=== PATIENT | male | born 1970 | race Caucasian/White ===

== ENCOUNTER 2018-02-15 21:56 | Emergency (ER) | payer OTHER ==
[2018-02-15 22:02] VITALS: BP 144/93; PULSE 82; TEMP 98.2; BMI 29.5
[2018-02-15] MEDS ORDERED: SODIUM CHLORIDE 1,000 ML IV STA (23:21)
[2018-02-15] MEDS ORDERED: PIPERACILLIN/TAZOB 3.375 GM 3.375 GM in DEXTROSE 5%-WATER - 50 ML IVPB ONE (23:22)
[2018-02-15] MEDS ORDERED: ONDANSETRON 4 MG/2 ML VIAL IVPUSH ONE (23:22)
[2018-02-15] MEDS ORDERED: ACETAMINOPHEN 1000 MG/100 ML VIAL (NON FORMULARY) IVPB ONE (23:23)
--- NOTE | 2018-02-15 23:27 | PDOC ---
Attending Attestation - HPI HPI: 02/15/18 23:43 The patient is a 87 year old male, with a significant past medical history of H.pylori (3 years ago), who presents to the emergency department with, 1 day of epigastric pain. As per patient, he has been experiencing epigastric pain, nausea with 20 episodes of watery emesis. He ranks his pain as 8/10. He went to [facility] earlier today where he received an ultrasound and bloodwork. His blood work showed a pertinent finding of 16.7 WBC. The advised him to report to the ED for further evaluation. He denies any recent fevers, chills, headache or dizziness. He denies any recent diarrhea or constipation. He denies any recent chest pain or shortness of breath. He denies any recent dysuria, frequency, urgency or hematuria. Allergies: NKA Social History: Social alcohol usage. Nonsmoker. Denies recreational drug use. - Physicial Exam PE: 02/15/18 23:43 GENERAL: Awake, alert, and fully oriented, in no acute distress HEAD: No signs of trauma EYES: PERRLA, EOMI, sclera anicteric, conjunctiva clear ENT: Auricles normal inspection, hearing grossly normal, nares patent, oropharynx clear without exudates. Moist mucosa NECK: Normal ROM, supple, no lymphadenopathy, JVD, or masses LUNGS: Breath sounds equal, clear to auscultation bilaterally. No wheezes, and no crackles HEART: Regular rate and rhythm, normal S1 and S2, no murmurs, rubs or gallops +ABDOMEN: Epigastric tenderness. [place] negative. Soft, normoactive bowel sounds. No guarding, no rebound. No masses EXTREMITIES: Normal range of motion, no edema. No clubbing or cyanosis. No cords, erythema, or tenderness NEUROLOGICAL: Cranial nerves II through XII grossly intact. Normal speech, normal gait SKIN: Warm, Dry, normal turgor, no rashes or lesions noted. <Linda Pritchard - Last Filed: 02/15/18 23:43> - Resident Resident Name: Sarwat Rueda - ED Attending Attestation I have performed the following: I have examined & evaluated the patient, The case was reviewed & discussed with the resident, I agree w/resident's findings & plan, Exceptions are as noted - Medical Decision Making 02/15/18 23:22 A portion of this note was written by my scribe, under my supervision. Vital Signs Temp Pulse Resp BP Pulse Ox 98.2 F 82 20 144/93 99 02/15/18 21:59 02/15/18 21:59 02/15/18 21:59 02/15/18 21:59 02/15/18 21:59 47 year old male with past medical history of H. pylori sent in from urgent care for epigastric pain and WBC 16. The patient woke up this morning with epigastric pain and multiple episodes of nauesa and vomiting. No fevers, chills. Endorses no appetite. Pt had a RUQ ultrasound (but did not get it read) and had blood work which showed WBC 16, and pt was sent to the ER. Will need to r/o acute cholecystitis. Will give IV antibiotics. U/S of RUQ. Admit. 02/16/18 02:05 Ultrasound reviewed. No acute findings. Will admit for GABRIELLA and leukocytosis. 02/16/18 02:34 Pt states that he feels much better and would like to go home. Even after giving the results of elevated WBC and GABRIELLA, the patient still requests to go home. Pt has capacity and has been able to repeat the risks. In the mean time, it is unclear what the source of the leukocytosis. This may in fact be reactive. However, blood cultures are pending. Will allow him to AMA. Will give him supportive care and have patient drink plenty of fluids. Return precautions given. <Bubba Clinton - Last Filed: 02/16/18 02:36> Heart Score/ECG Review #1 ECG reviewed & interpreted by me at: 01:10 02/16/18 01:22 NSR 75, no std/nereyda, normal axis, normal intervals, QTC 446 msec. <Bubba Clinton - Last Filed: 02/16/18 02:36> Attestations - Attestations 02/15/18 23:43 Documentation prepared by Linda Pritchard, acting as medical device sales consultant for Bubba Clinton MD. <Linda Pritchard - Last Filed: 02/15/18 23:43>
[2018-02-16] MEDS ORDERED: ONDANSETRON 4 MG/2 ML VIAL ONE (00:02)
[2018-02-16] MEDS ORDERED: ACETAMINOPHEN INJECTION 100 ML IVPB ONE (00:02)
[2018-02-16] MEDS ORDERED: PIPERACILLIN/TAZOB 3.375 GM 3.375 GM/50 ML BAG IVPB ONE (00:03)
[2018-02-16 00:21] LABS: BASO % 0.4 % (0-2.0); EOS % 0.1 % (0-4.5); HEMOGLOBIN 16.5 GM/dL (11.7-16.9); LYMPH % 6.7 % (8-40); MCH 30.7 pg (25.7-33.7); MCHC 33.7 g/dl (32.0-35.9); MEAN CELL VOLUME 91.2 fl (80-96); MEAN PLT VOLUME 8.3 fl (7.5-11.1); MONO % 6.4 % (3.8-10.2); NEUT % 86.4 % (42.8-82.8); PLATELET COUNT 260 K/MM3 (134-434); RBC 5.37 M/mm3 (4.00-5.60); RDW 13.7 % (11.9-15.9); WHITE BLOOD COUNT 16.2 K/mm3 (4.0-10.0)
[2018-02-16 01:04] LABS: ALBUMIN 4.4 g/dl (3.4-5.0); ANION GAP 10 (8-16); BILIRUBIN,TOTAL 0.8 mg/dL (0.2-1.0); BLOOD UREA NITROGEN 16 mg/dL (7-18); CALCIUM 9.6 mg/dL (8.5-10.1); CHLORIDE 103 mmol/L (98-107); CO2 27 mmol/L (21-32); CREATININE 1.5 mg/dL (0.7-1.3); GLUCOSE,RANDOM 132 mg/dL (74-106); LIPASE 78 U/L (73-393); POTASSIUM 4.4 mmol/L (3.5-5.1); SGOT/AST 20 U/L (15-37); SGPT/ALT 36 U/L (12-78); SODIUM 140 mmol/L (136-145); TOT PROT 8.2 g/dl (6.4-8.2)
[2018-02-16 01:07] LABS: ALK PHOS 92 U/L (45-117)
[2018-02-16 01:43] LABS: URINE APPEARANCE CLEAR; URINE BILIRUBIN NEGATIVE (<2.0 mg/dL); URINE COLOR DKYELLOW; URINE GLUCOSE (UA) NEGATIVE (NEGATIVE); URINE KETONE NEGATIVE (NEGATIVE); URINE LEUK ESTERASE NEGATIVE (NEGATIVE); URINE NITRITE NEGATIVE (NEGATIVE); URINE UROBILINOGEN NEGATIVE mg/dL (0.2-1.0)
[2018-02-16 02:13] LABS: URINE PROTEIN 1+ (NEGATIVE)
[2018-02-16 02:14] LABS: EPI CELLS RARE /HPF (FEW); URINE MUCUS MANY
--- NOTE | 2018-02-16 02:28 | PDOC ---
History of Present Illness - General Chief Complaint: Pain Stated Complaint: FATIGUE Time Seen by Provider: 02/15/18 22:48 History Source: Patient Exam Limitations: No Limitations - History of Present Illness Initial Comments: 02/16/18 17:58 Mr. Mejía is a 47 yo M with a hx of h. pylori infection (3 years ago) who presented to the emergency department with abdominal pain with associated nausea and vomiting after referral from [facility] urgent care. He states the pain began 6am 02/15/2018 that woke him from sleep. He states it was a squeezing sensation, 8/10, without radiation with eating increasing the pain. He endorses having 20x+ vomiting episodes throughout the day, but denies hematemesis. Currently, he states his abdominal pain is 2/10 and was able to tolerate PO apple juice and water. His labs showed leukocytosis of 16+ WBC and possible dilated common bile duct on RUQ US. Denies the following: fever, headache, chest pain, SOB, dysuria, hematochezia, hematuria, dizziness, and neck pain. Pmhx: H pylori 3 years ago Shx: Vasectomy 2016 Medications: None Allergies: NKDA Social: Denies smoking and substance abuse. Recreational/social drinker. 02/16/18 18:05 Past History - Past Medical History Allergies/Adverse Reactions: Allergies Allergy/AdvReac Type Severity Reaction Status Date / Time No Known Allergies Allergy Verified 02/15/18 22:02 Home Medications: Ambulatory Orders Ibuprofen [Motrin -] 600 mg PO QID PRN #20 tablet 02/16/18 Ondansetron [Zofran -] 4 mg PO TID PRN #14 tablet 02/16/18 Ranitidine [Zantac -] 150 mg PO BID PRN 7 Days #14 tablet 02/16/18 - Suicide/Smoking/Psychosocial Hx Smoking History: Never smoked Hx Alcohol Use: Yes (social) Drug/Substance Use Hx: No Review of Systems - Review of Systems Able to Perform ROS?: Yes Constitutional: No: Chills, Diaphoresis, Fever HEENTM: No: Blurred Vision, Recent change in vision, Nose Pain, Throat Pain, Mouth Pain Respiratory: No: Cough, Shortness of Breath, Hemoptysis Cardiac (ROS): No: Chest Pain, Lightheadedness, Palpitations ABD/GI: Yes: Nausea, Vomiting. No: Constipated, Diarrhea, Rectal Bleeding, Tarry Stools : No: Burning, Dysuria, Hematuria Musculoskeletal: No: Back Pain Integumentary: No: Rash Neurological: No: Headache, Numbness Psychiatric: No: Stressors Endocrine: No: Unexplained Weight Gain *Physical Exam - Vital Signs Last Vital Signs Temp Pulse Resp BP Pulse Ox 98.2 F 82 20 144/93 99 02/15/18 21:59 02/15/18 21:59 02/15/18 21:59 02/15/18 21:59 02/15/18 21:59 - Physical Exam General Appearance: Yes: Nourished, Appropriately Dressed HEENT: positive: EOMI, YURI. negative: Pharyngeal Erythema, Tonsillar Exudate Neck: positive: Other (negative brudzinski and kernig sign.). negative: Lymphadenopathy (R), Lymphadenopathy (L) Respiratory/Chest: positive: Lungs Clear, Normal Breath Sounds. negative: Chest Tender Cardiovascular: positive: Regular Rhythm, Regular Rate, S1, S2. negative: Systolic Murmur Vascular Pulses: Dorsalis-Pedis (R): 3+, Doralis-Pedis (L): 3+ Gastrointestinal/Abdominal: positive: Normal Bowel Sounds, Tender (epigastric region), Other (negative murphys sign. negative mcburney, negative rosvings) Musculoskeletal: negative: CVA Tenderness Extremity: positive: Normal Capillary Refill, Normal Inspection Integumentary: positive: Normal Color, Dry, Warm Neurologic: positive: supervisor glycerin II-XII NML intact, Fully Oriented, Alert, Motor Strength 5/5 ED Treatment Course - LABORATORY CBC & Chemistry Diagram: 02/16/18 00:10 02/16/18 00:10 - ADDITIONAL ORDERS Additional order review: Laboratory Results 02/16/18 02/16/18 01:08 00:10 Sodium 140 Potassium 4.4 Chloride 103 Carbon Dioxide 27 Anion Gap 10 BUN 16 Creatinine 1.5 H Creat Clearance w eGFR 50.61 Random Glucose 132 H Calcium 9.6 Total Bilirubin 0.8 AST 20 ALT 36 Alkaline Phosphatase 92 Creatine Kinase 131 Troponin I < 0.02 Total Protein 8.2 Albumin 4.4 Lipase 78 Urine Color Dkyellow Urine Appearance Clear Urine pH 5.0 Ur Specific [place] 1.031 Urine Protein 1+ H Urine Glucose (UA) Negative Urine Ketones Negative Urine Blood Negative Urine Nitrite Negative Urine Bilirubin Negative Urine Urobilinogen Negative Ur Leukocyte Esterase Negative Urine WBC (Auto) 3 Urine RBC (Auto) None Ur Epithelial Cells Rare Urine Mucus Many 02/16/18 00:10 RBC 5.37 MCV 91.2 MCHC 33.7 RDW 13.7 MPV 8.3 Neutrophils % 86.4 H Lymphocytes % 6.7 L Monocytes % 6.4 Eosinophils % 0.1 Basophils % 0.4 - RADIOLOGY Radiology Studies Ordered: Category Date Time Status CHEST X-RAY PORTABLE* [RAD] Stat Radiology 02/16/18 01:25 Ordered ABDOMEN US -LIMITED [US] Stat Ultrasound 02/16/18 23:20 Taken - Medications Given in the ED: ED Medications Discontinued Medications Generic Name Dose Route Start Last Admin Trade Name Ella PRN Reason Stop Dose Admin Acetaminophen 1,000 mg 02/15/18 23:23 02/16/18 00:09 Ofirmev Injection - IVPB 02/15/18 23:24 1,000 mg ONCE ONE Administration Sodium Chloride 1,000 mls @ 1,000 mls/hr 02/15/18 23:21 02/16/18 00:08 Normal Saline - IV 02/16/18 00:20 1,000 mls/hr ASDIR STA Administration Piperacillin Sod/Tazobactam 50 mls @ 100 mls/hr 02/15/18 23:22 02/16/18 01:21 Sod 3.375 gm/ Dextrose IVPB 02/15/18 23:51 100 mls/hr ONCE ONE Administration Protocol Ondansetron HCl 4 mg 02/15/18 23:22 02/16/18 00:09 Zofran Injection IVPUSH 02/15/18 23:23 4 mg ONCE ONE Administration Medical Decision Making - Medical Decision Making Mr. Mejía is a 47 yo M with a hx of h pylori 3 years ago who presents with epigastric pain with concurrent nausea and vomiting that has been ongoing since 6 am 02/16/2018. Initial vitals: Initial Vital Signs Temp Pulse Resp BP Pulse Ox 98.2 F 82 20 144/93 99 02/15/18 21:59 02/15/18 21:59 02/15/18 21:59 02/15/18 21:59 02/15/18 21:59 Work up: Laboratory Results - last 24 hr 02/16/18 02/16/18 02/16/18 00:10 00:10 01:08 WBC 16.2 H RBC 5.37 Hgb 16.5 Hct 49.0 MCV 91.2 MCH 30.7 MCHC 33.7 RDW 13.7 Plt Count 260 MPV 8.3 Absolute Neuts (auto) 14.0 Neutrophils % 86.4 H Lymphocytes % 6.7 L Monocytes % 6.4 Eosinophils % 0.1 Basophils % 0.4 Nucleated RBC % 0 Sodium 140 Potassium 4.4 Chloride 103 Carbon Dioxide 27 Anion Gap 10 BUN 16 Creatinine 1.5 H Creat Clearance w eGFR 50.61 Random Glucose 132 H Calcium 9.6 Total Bilirubin 0.8 AST 20 ALT 36 Alkaline Phosphatase 92 Creatine Kinase 131 Troponin I < 0.02 Total Protein 8.2 Albumin 4.4 Lipase 78 Urine Color Dkyellow Urine Appearance Clear Urine pH 5.0 Ur Specific [place] 1.031 Urine Protein 1+ H Urine Glucose (UA) Negative Urine Ketones Negative Urine Blood Negative Urine Nitrite Negative Urine Bilirubin Negative Urine Urobilinogen Negative Ur Leukocyte Esterase Negative Urine WBC (Auto) 3 Urine RBC (Auto) None Ur Epithelial Cells Rare Urine Mucus Many 02/16/18 02:18 Pt wants to leave AMA and after the benefits of being admitted and risks associated with leaving AMA, he states he wants to leave AMA. He understands the risks and understands the return precautions to return to the emergency department if symptoms worsen or new concerning symptoms arise. He was advised to follow up with his primary care doctor and provided a referral to [facility] for follow up. Disposition: AMA 02/16/18 18:12 *DC/Admit/Observation/Transfer Diagnosis at time of Disposition: GABRIELLA (acute kidney injury) Vomiting Qualifiers: Vomiting type: unspecified Vomiting Intractability: non-intractable Nausea presence: unspecified Qualified Code(s): R11.10 - Vomiting, unspecified Leukocytosis Qualifiers: Leukocytosis type: unspecified Qualified Code(s): D72.829 - Elevated white blood cell count, unspecified - Discharge Dispostion Disposition: AGAINST MEDICAL ADVICE Decision to Admit order: No - Prescriptions Prescriptions: Ibuprofen [Motrin -] 600 mg PO QID PRN #20 tablet PRN Reason: Pain Ondansetron [Zofran -] 4 mg PO TID PRN #14 tablet PRN Reason: Nausea And/Or Vomiting Ranitidine [Zantac -] 150 mg PO BID PRN 7 Days #14 tablet PRN Reason: Nausea And/Or Vomiting - Referrals Referrals: Ricco Dominique MD [Staff Physician] - - Patient Instructions Additional Instructions: You are leaving against medical advice for a diagnosis including vomiting, leukocytosis, and acute kidney injury. You understand the risks of leaving against medical advice which include further kidney injury, sepsis, and up to . Please follow up with the referred physician for continued care. Do this within 1-2 days. Please use the medications as prescribed. If your symptoms worsen or new concerning symptoms arise, please return to the emergency department as soon as possible. - Post Discharge Activity Forms/Work/School Notes: Back to Work
--- NOTE | 2018-02-18 10:42 | EKG ---
Test Reason : Blood Pressure : / mmHG Vent. Rate : 075 BPM Atrial Rate : 075 BPM P-R Int : 166 ms QRS Dur : 082 ms QT Int : 400 ms P-R-T Axes : 065 -20 022 degrees QTc Int : 446 ms NORMAL SINUS RHYTHM NORMAL ECG NO PREVIOUS ECGS AVAILABLE Confirmed by TANMAY DIAS MD ([id number]) on 02/18/2018 10:42:26 AM Referred By: Confirmed By:TANMAY DIAS MD
== END 2018-02-16 03:27 | disposition left against medical advice (07) ==
LOC: JER 21:56
PROC: 3E0337Z Introduction of Electrolytic and Water Balance Substance into Peripheral Vein, Percutaneous Approach (ICD-10-PCS; principal; 2018-02-15)
PROC: 3E03329 Introduction of Other Anti-infective into Peripheral Vein, Percutaneous Approach (ICD-10-PCS; 2018-02-15)
PROC: 3E033NZ Introduction of Analgesics, Hypnotics, Sedatives into Peripheral Vein, Percutaneous Approach (ICD-10-PCS; 2018-02-15)
PROC: 3E033GC Introduction of Other Therapeutic Substance into Peripheral Vein, Percutaneous Approach (ICD-10-PCS; 2018-02-15)
DX: N17.9 Acute kidney failure, unspecified (principal); D72.829 Elevated white blood cell count, unspecified
CPT/HCPCS: 36415; 76705-TC; 80053; 81003; 81015; 82550; 83690; 84484; 85025; 87086; 93005; 93010; 99282-25; J0131; J7030